=== PATIENT | male | born 1975 | race Caucasian/White ===

== ENCOUNTER 2017-03-08 19:36 | Emergency (ER) | payer MEDICARE, MEDICAID ==
--- NOTE | 2017-03-08 20:38 | ER Document Report ---
ED Medical Screen (RME) - General Chief Complaint: Possible Overdose Stated Complaint: POSSIBLE OVERDOSE Time Seen by Provider: 03/08/17 20:30 Information source: Patient Notes: Very polite male who presents after being dropped off by a "long-term" that he is unable to identify for possible ingestion. 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 Patient left the long-term voluntarily a few days ago and then returned today. Supposedly the patient was missing multiple OxyContin pills and they were concerned about a possible overdose. The patient denies any Tylenol or Percocet ingestion. Patient denies any suicidal or homicidal intent. Patient denies any headache, chest pain, nausea, vomiting, weakness or numbness. TRAVEL OUTSIDE OF THE [place] IN LAST 30 DAYS: No - Related Data Allergies/Adverse Reactions: No Known Allergies Allergy (Verified 03/08/17 20:31) Past Medical History Renal/ Medical History: Denies: Hx Peritoneal Dialysis Physical Exam - Vital signs Vitals: Temp Pulse Resp BP Pulse Ox 98.2 F 64 14 127/71 H 96 03/08/17 19:50 03/08/17 19:50 03/08/17 19:50 03/08/17 19:50 03/08/17 19:50 Course - Vital Signs Vital signs: Temp Pulse Resp BP Pulse Ox 98.2 F 64 14 127/71 H 96 03/08/17 19:50 03/08/17 19:50 03/08/17 19:50 03/08/17 19:50 03/08/17 19:50
[2017-03-08 21:19] LABS: ABSOLUTE BASOPHILS # (AUTO) 0.1 10^3/uL (0.0-0.2); ABSOLUTE EOSINOPHILS # (AUTO) 0.9 10^3/uL (0.0-0.6); ABSOLUTE LYMPHOCYTES (AUTO) 4.3 10^3/uL (0.5-4.7); ABSOLUTE MONOCYTES (AUTO) 0.8 10^3/uL (0.1-1.4); EOSINOPHILS % (AUTO) 7.3 % (0-6); HEMATOCRIT 44.5 % (37.9-51.0); HEMOGLOBIN 14.6 g/dL (13.5-17.0); HGB HCT DIFFERENCE -0.7; LYMPHOCYTES % (AUTO) 35.2 % (13-45); MEAN CORPUSCULAR HEMOGLOBIN 29.8 pg (27.0-33.4); MEAN CORPUSCULAR HGB CONC 32.8 g/dL (32.0-36.0); MEAN CORPUSCULAR VOLUME 91 fl (80-97); RED BLOOD COUNT 4.89 10^6/uL (4.35-5.55); RED CELL DISTRIBUTION WIDTH 12.9 % (11.5-14.0); SEGMENTED NEUTROPHILS % (AUTO) 49.5 % (42-78); WHITE BLOOD COUNT 12.2 10^3/uL (4.0-10.5)
[2017-03-08 21:43] LABS: ALANINE AMINOTRANSFERASE 52 U/L (21-72); ALBUMIN 4.4 g/dL (3.5-5.0); ALKALINE PHOSPHATASE 124 U/L (38-126); ANION GAP 11 (5-19); ASPARTATE AMINO TRANSFERASE 33 U/L (17-59); BILIRUBIN,DIRECT 0.4 mg/dL (0.0-0.4); BILIRUBIN,TOTAL 0.7 mg/dL (0.2-1.3); BLOOD UREA NITROGEN 8 mg/dL (7-20); CALCIUM 9.6 mg/dL (8.4-10.2); CARBON DIOXIDE 29 mmol/L (22-30); CHLORIDE 102 mmol/L (98-107); CREATININE RESULT 0.84 mg/dL (0.52-1.25); GLUCOSE 81 mg/dL (75-110); POTASSIUM 4.6 mmol/L (3.6-5.0); SODIUM 141.5 mmol/L (137-145); TOTAL PROTEIN 7.7 g/dL (6.3-8.2)
--- NOTE | 2017-03-08 22:37 | ER Document Report ---
ED Substance Abuse / Acc. OD - General Chief Complaint: Possible Overdose Stated Complaint: POSSIBLE OVERDOSE Time Seen by Provider: 03/08/17 20:30 Mode of Arrival: Ambulatory Information source: Patient Notes: Patient is a 41-year-old male brought into the emergency department today from his correction for possible ingestion of oxycodone. Patient takes OxyContin 40 mg and correction thought that he may have taken too many OxyContin today as he was missing 15 pills from his bottle. Patient states that he was with his family for a couple of days out of the group, he took his OxyContin but he did not. He denies any TRAVEL OUTSIDE OF THE [place] IN LAST 30 DAYS: No - Related Data Allergies/Adverse Reactions: No Known Allergies Allergy (Verified 03/08/17 20:31) Past Medical History - General Information source: Patient - Social History Smoking Status: Never Smoker Family History: Reviewed & Not Pertinent Patient has suicidal ideation: No Patient has homicidal ideation: No Renal/ Medical History: Denies: Hx Peritoneal Dialysis Review of Systems - Review of Systems Constitutional: No symptoms reported EENT: No symptoms reported Cardiovascular: No symptoms reported Respiratory: No symptoms reported Gastrointestinal: No symptoms reported Genitourinary: No symptoms reported Male Genitourinary: No symptoms reported Musculoskeletal: No symptoms reported Skin: No symptoms reported Hematologic/Lymphatic: No symptoms reported Neurological/Psychological: No symptoms reported Physical Exam - Vital signs Vitals: Temp Pulse Resp BP Pulse Ox 98.2 F 64 14 127/71 H 96 03/08/17 19:50 03/08/17 19:50 03/08/17 19:50 03/08/17 19:50 03/08/17 19:50 - Notes Notes: PHYSICAL EXAMINATION: GENERAL: Well-appearing and in no acute distress. HEAD: Atraumatic, normocephalic. EYES: Pupils equal round and reactive to light, extraocular movements intact, sclera anicteric, conjunctiva are normal. ENT: ear canals without erythema or foreign body, TMs pearly deleon with good bony landmarks, nares patent, oropharynx clear without exudates. Moist mucous membranes. Airway patent NECK: Normal range of motion, supple without lymphadenopathy LUNGS: CTAB and equal. No wheezes rales or rhonchi. HEART: Regular rate and rhythm without murmurs ABDOMEN: Soft, no tenderness. No guarding, no rebound EXTREMITIES: Normal range of motion, no pitting edema. No cyanosis. NEUROLOGICAL: At baseline, Cranial nerves grossly intact. PSYCH: Normal mood, normal affect. SKIN: Warm, Dry, normal turgor, no rashes or lesions noted Course - Re-evaluation Re-evalutation: 03/08/17 22:36 all lab work today is unremarkable including a normal Tylenol level. Patient's vitals are all normal and he seems well. Patient can be discharged back to correction. - Vital Signs Vital signs: Temp Pulse Resp BP Pulse Ox 98.2 F 64 14 127/71 H 96 03/08/17 19:50 03/08/17 19:50 03/08/17 19:50 03/08/17 19:50 03/08/17 19:50 - Laboratory Result Diagrams: 03/08/17 20:37 03/08/17 20:37 Laboratory results interpreted by me: 03/08/17 03/08/17 20:37 20:37 WBC 12.2 H Eosinophils % 7.3 H Absolute Eosinophils 0.9 H Salicylates < 1.0 L Acetaminophen < 10 L Discharge - Discharge Clinical Impression: Physical exam Condition: Stable Disposition: HOME, SELF-CARE Additional Instructions: Return immediately for any new or worsening symptoms. Follow up with primary care provider, call tomorrow to make followup appointment.
[2017-03-08 22:58] VITALS: BP 126/84
== END 2017-03-08 22:58 | disposition home or self-care (01) ==
LOC: ER 19:36
DX: T40.2X5A Adverse effect of other opioids, initial encounter (principal)
CPT/HCPCS: 36415; 80053; 80307; 85025; 99284

== ENCOUNTER 2017-03-22 15:59 | Emergency (ER) | payer MEDICARE, MEDICAID ==
--- NOTE | 2017-03-22 18:20 | ER Document Report ---
ED General - General Chief Complaint: Anxiety Stated Complaint: SUICIDAL IDEATION Time Seen by Provider: 03/22/17 16:14 Mode of Arrival: Medic Information source: Patient Notes: 42-year-old male chronic pain due to multiple surgeries of the right leg right wrist hip presents with complaints of pain. Patient notes that he took his last OxyContin and since he ran out of his pain medication he would rather than be in pain. Patient does not actually wish to kill himself notes it is only secondary to his lack of narcotics TRAVEL OUTSIDE OF THE [place] IN LAST 30 DAYS: No - HPI Onset: Just prior to arrival Onset/Duration: Sudden Quality of pain: Achy Severity: Mild Pain Level: 1 Associated symptoms: Other Exacerbated by: Denies Relieved by: Denies Similar symptoms previously: Yes Recently seen / treated by doctor: Yes - Related Data Allergies/Adverse Reactions: No Known Allergies Allergy (Verified 03/08/17 20:31) Past Medical History - Social History Smoking Status: Current Every Day Smoker Cigarette use (# per day): Yes Chew tobacco use (# tins/day): No Smoking Education Provided: No Family History: Reviewed & Not Pertinent Renal/ Medical History: Denies: Hx Peritoneal Dialysis Review of Systems - Review of Systems Notes: PHYSICAL EXAMINATION: GENERAL: Well-appearing, well-nourished and in no acute distress. HEAD: Atraumatic, normocephalic. EYES: Pupils equal round and reactive to light, extraocular movements intact, sclera anicteric, conjunctiva are normal. ENT: Nares patent, oropharynx clear without exudates. Moist mucous membranes. NECK: Normal range of motion, supple without lymphadenopathy LUNGS: Breath sounds clear to auscultation bilaterally and equal. No wheezes rales or rhonchi. HEART: Regular rate and rhythm without murmurs ABDOMEN: Soft, nontender, nondistended abdomen. No guarding, no rebound. No masses appreciated. Musculoskeletal: Right wrist tenderness right hip tenderness NEUROLOGICAL: Cranial nerves grossly intact. Normal speech, normal gait. Normal sensory, motor exams PSYCH: Normal mood, normal affect. SKIN: Warm, Dry, normal turgor, no rashes or lesions noted. Physical Exam - Vital signs Vitals: Temp BP Pulse Ox 98.0 F 118/78 98 03/22/17 16:30 03/22/17 16:30 03/22/17 16:30 Course - Re-evaluation Re-evalutation: 03/22/17 20:14 Patient is in no distress, he has no actual suicidal ideations. This appears to be drug-seeking but given that he has been on this and appears to have an actual reason to have pain I will continue his pain medication and discharged back to the care home Patient has been instructed that he must follow-up with his primary care physician to continue pain medication and that it is not appropriate to receive them through the emergency department After performing a Medical Screening Examination, I estimate there is LOW risk for any life threatening mental health issues. At this time the patient looks extremely well and has not attempted severe self harm. I have reevaluated this patient multiple times and no significant life threatening changes are noted. The patient and I have discussed the diagnosis and risks, and we agree with discharging home with close follow-up with the understanding that symptoms and presentations can change. We also discussed returning to the Emergency Department immediately if new or worsening symptoms occur. We have discussed the symptoms which are most concerning (hallucinations, thoughts or actions of self harm or harm to others) that necessitate immediate return. - Vital Signs Vital signs: Temp Pulse Resp BP Pulse Ox 97.8 F 57 L 127/81 H 97 03/22/17 18:26 03/22/17 18:26 03/22/17 18:26 03/22/17 18:26 Discharge - Discharge Clinical Impression: Pain, generalized, Suicidal ideation Condition: Stable Disposition: HOME, SELF-CARE Instructions: Anxiety ([facility]) Additional Instructions: You have been given been a very limited supply of narcotics, he must follow-up with your primary care physician for further care Prescriptions: Oxycodone HCl [Oxycontin Sr 40 mg Tablet] 40 mg PO Q12 #30 tab.sr.12h
[2017-03-22 18:31] VITALS: BP 127/81
--- NOTE | 2017-03-24 09:49 | EKG REPORT ---
SEVERITY:- NORMAL ECG - SINUS RHYTHM : Confirmed by: Camilla Gotti 24-Mar-2017 09:48:21
== END 2017-03-22 18:26 | disposition home or self-care (01) ==
LOC: ER 15:59
DX: R52 Pain, unspecified (principal); R45.851 Suicidal ideations; Z98.890 Other specified postprocedural states; F17.210 Nicotine dependence, cigarettes, uncomplicated; Z79.899 Other long term (current) drug therapy
CPT/HCPCS: 93005; 93010; 99284

== ENCOUNTER 2017-03-23 13:45 | Emergency (ER) | payer MEDICARE, MEDICAID ==
[2017-03-23 14:01] VITALS: BP 134/85
--- NOTE | 2017-03-23 14:46 | ER Document Report ---
ED General - General Chief Complaint: Suicidal Ideation Stated Complaint: SUICIDAL IDEATION Time Seen by Provider: 03/23/17 14:05 Notes: The patient is a 42-year-old male, past medical history chronic pain after an accident 10 years ago with surgery, presents after he was unable to get his OxyContin filled yesterday because "it is not enough time." He said that he would rather kill himself than live in this pain. He says that he normally feels this way, but does not want to hurt himself or anyone else. Patient lives in a residential removed to [place]. He has Medicaid, but has not seen a primary care physician yet. TRAVEL OUTSIDE OF THE [place] IN LAST 30 DAYS: No - Related Data Allergies/Adverse Reactions: No Known Allergies Allergy (Verified 03/23/17 14:00) Past Medical History - General Information source: Patient - Social History Smoking Status: Current Every Day Smoker Chew tobacco use (# tins/day): No Frequency of alcohol use: None Drug Abuse: None Family History: Reviewed & Not Pertinent - Past Medical History Cardiac Medical History: Reports: Hx Hypertension Renal/ Medical History: Denies: Hx Peritoneal Dialysis Past Surgical History: Reports: Hx Orthopedic Surgery - Immunizations Hx Diphtheria, Pertussis, Tetanus Vaccination: Yes Review of Systems - Review of Systems Notes: REVIEW OF SYSTEMS: CONSTITUTIONAL: -fevers, -chills EENT: -eye pain, -difficulty swallowing, -nasal congestion CARDIOVASCULAR: -chest pain, -syncope. RESPIRATORY: -cough, -SOB GASTROINTESTINAL: -abdominal pain, -nausea, -vomiting, -diarrhea GENITOURINARY: -dysuria, -hematuria MUSCULOSKELETAL: +leg pain, -back pain, -neck pain SKIN: -rash or skin lesions. HEMATOLOGIC: -easy bruising or bleeding. LYMPHATIC: -swollen, enlarged glands. NEUROLOGICAL: -altered mental status or loss of consciousness, -headache, - neurologic symptoms PSYCHIATRIC: -anxiety, -depression. ALL OTHER SYSTEMS REVIEWED AND NEGATIVE. Physical Exam - Vital signs Vitals: Temp Pulse Resp BP Pulse Ox 97.9 F 84 16 134/85 H 96 03/23/17 13:50 03/23/17 13:50 03/23/17 13:50 03/23/17 13:50 03/23/17 13:50 - Notes Notes: PHYSICAL EXAMINATION: GENERAL: Well-appearing, well-nourished and in no acute distress. HEAD: Atraumatic, normocephalic. EYES: Pupils equal round and reactive to light, extraocular movements intact, sclera anicteric, conjunctiva are normal. ENT: nares patent, oropharynx clear without exudates. Moist mucous membranes. NECK: Normal range of motion, supple without lymphadenopathy LUNGS: Breath sounds clear to auscultation bilaterally and equal. No wheezes rales or rhonchi. HEART: Regular rate and rhythm without murmurs ABDOMEN: Soft, nontender, normoactive bowel sounds. No guarding, no rebound. No masses appreciated. EXTREMITIES: Normal range of motion, no pitting or edema. No cyanosis. NEUROLOGICAL: Cranial nerves grossly intact. Normal speech, normal gait. Normal sensory and motor exams. PSYCH: Normal mood, normal affect. No suicidal or homicidal ideation. SKIN: Warm, Dry, normal turgor, no rashes or lesions noted. Course - Re-evaluation Re-evalutation: Patient was seen in the emergency room yesterday night for the exact same issue and he was discharged home with a refill of his OxyContin until he was able to see his primary care physician. He states that he is only feeling like he wants to because he is in pain. He does not actually want to and does not want to kill anyone else. He had a full workup completed last night. Instructed him that he must follow-up with the primary care physician and that he will not be receiving any more pain medications from the ER. Do not suspect that he is actively suicidal at this time due to denying suicidality multiple times to myself and GENNARO Prees. - Vital Signs Vital signs: Temp Pulse Resp BP Pulse Ox 97.9 F 84 16 134/85 H 96 03/23/17 13:50 03/23/17 13:50 03/23/17 13:50 03/23/17 13:50 03/23/17 13:50 Discharge - Discharge Clinical Impression: Chronic pain Qualifiers: Chronic pain type: other chronic pain Qualified Code(s): G89.29 - Other chronic pain Condition: Stable Disposition: HOME, SELF-CARE Additional Instructions: You were provided with a prescription of your OxyContin yesterday. You will not be provided with any additional doses in the emergency room. You must follow-up with a primary care physician to manage your chronic pain. NORMAL EXAM AND WORKUP: At this time, your examination and workup show no significant abnormality. No significant abnormal physical findings were noted. All laboratory, EKG, and imaging (x-ray, CT scans, ultrasound) studies that were ordered show no significant abnormality. Although your examination and all studies that were ordered showed no significant abnormal finding, there are no examinations and no studies that are 100% accurate. There is always the possibility that some abnormality could exist and not be detected with physical examination or within the limits and capabilities of laboratory and other studies. You should return or follow up as you were instructed on your visit today for further evaluation if your symptoms do not resolve. Referrals: LUANN MCDOWELL MD [ACTIVE STAFF] - Follow up as needed
[2017-03-23] MEDS ORDERED: OXYCODONE HCL SR 40 MG TABLET PO ONE (14:47)
== END 2017-03-23 15:02 | disposition home or self-care (01) ==
LOC: ER 13:45
DX: G89.29 Other chronic pain (principal); Z79.891 Long term (current) use of opiate analgesic; F17.200 Nicotine dependence, unspecified, uncomplicated
CPT/HCPCS: 99284; A9270